=== PATIENT | female | born 1960 | race Caucasian/White ===

== ENCOUNTER 2017-04-25 16:46 | Observation (INO) | payer MEDICAID ==
[2017-04-25 16:50] VITALS: BP 170/125; PULSE 82; RESP 20; TEMP 99.6; O2SAT 100
[2017-04-25] MEDS ORDERED: SODIUM CHLORIDE 0.9% FLUSH 5 ML FLUSH IV FLUSH PRN (17:00)
--- NOTE | 2017-04-25 17:05 | PD ---
HPI Chief Complaint: Altered Mental Status Time Seen by Provider: 16:55 Travel History International Travel<30 days: No Contact w/Intl Traveler<30days: No Traveled to known affect area: No History of Present Illness HPI This patient presents with altered mental status. She presents very confused and has limited ability to provide history or review of systems. She is brought in by her friend. This patient lives alone and the friend called her and she sounded confused so she came to visit her and then brought her in. The patient has no head injury or headache. She was seen here last year and diagnosed with short term memory loss. She never goes to a physician and takes no medications. She denies diagnosed medical history. The friend says that the way she presents today is much worse than her usual. Symptoms of moderate severe in terms of confusion. No alleviating factors. Duration is one day in terms of the acute worsening PFSH Past Medical History Diminished Hearing: No Deep Vein Thrombosis: Yes GERD: Yes Past Surgical History Other Surgery: Yes (LUMPECTOMY AND COLLAPSED VEIN LLE.) Social History Alcohol Use: Yes (6 PACK A DAY) Tobacco Use: Yes (1 /2 PPD) Substance Use: No Allergies-Medications (Allergen,Severity, Reaction): Coded Allergies: Amoxicillin (Verified Allergy, Severe, N/V, 04/25/17) Cipro (Verified Allergy, Severe, N/V, 04/25/17) Codeine (Verified Allergy, Mild, 04/25/17) Erythromycins (Verified Allergy, Mild, 04/25/17) Morphine (Verified Allergy, Mild, 04/25/17) Penicillin (Verified Allergy, Mild, 04/25/17) Uncoded Allergies: TYLOX (Allergy, Mild, 11/20/03) Reported Meds & Prescriptions Reported Meds & Active Scripts Active No Active Prescriptions or Reported Medications Review of Systems General / Constitutional: No: Fever Eyes: No: Visual changes HENT: No: Headaches Cardiovascular: No: Chest Pain or Discomfort Respiratory: No: Shortness of Breath Gastrointestinal: No: Abdominal Pain Genitourinary: No: Dysuria Musculoskeletal: No: Pain Skin: No Rash Neurologic: Positive: Change in Mentation, No: Weakness Psychiatric: No: Depression Endocrine: No: Polydipsia Hematologic/Lymphatic: No: Easy Bruising Physical Exam Narrative GENERAL: Well-nourished, well-developed patient with confusion but no apparent distress. SKIN: Focused skin assessment reveals no rash and nodules. Skin is Warm and dry. Has very long fingernails HEAD: Atraumatic. Normocephalic. EYES: Pupils equal and round. No scleral icterus. No injection or drainage. ENT: No nasal bleeding or discharge. Mucous membranes pink and moist. Throat clear NECK: Trachea midline. No JVD. No meningeal signs CARDIOVASCULAR: Regular rate and rhythm. No murmur appreciated. RESPIRATORY: No accessory muscle use. Clear to auscultation. Breath sounds equal bilaterally. GASTROINTESTINAL: Abdomen soft, non-tender, nondistended. Hepatic and splenic margins not palpable. MUSCULOSKELETAL: No obvious deformities. No clubbing. No cyanosis. No edema. NEUROLOGICAL: Awake but confused. No obvious cranial nerve deficits. Motor grossly within normal limits. Normal speech. PSYCHIATRIC: Appropriate mood and affect; insight and judgment very poor . Data Data Last Documented VS Vital Signs Date Time Temp Pulse Resp B/P Pulse Ox O2 Delivery O2 Flow Rate FiO2 04/25/17 17:51 66 18 134/104 98 04/25/17 16:50 99.6 Orders Ammonia (04/25/17 16:56) Complete Blood Count With Diff (04/25/17 16:56) Comprehensive Metabolic Panel (04/25/17 16:56) Thyroid Stimulating Hormone (04/25/17 16:56) Urinalysis - C+S If Indicated (04/25/17 16:56) Ct Brain W/O Iv Contrast(Rout) (04/25/17 16:56) Blood Glucose (04/25/17 16:56) Ecg Monitoring (04/25/17 16:56) Iv Access Insert/Monitor (04/25/17 16:56) Oximetry (04/25/17 16:56) Sodium Chloride 0.9% Flush (Ns Flush) (04/25/17 17:00) Drug Screen, Random Urine (04/25/17 16:56) Alcohol (Ethanol) (04/25/17 16:56) Cath For Specimen (04/25/17 17:07) Urine Culture (04/25/17 16:15) Admit Order (Ed Use Only) (04/25/17 18:07) Admit Order (Ed Use Only) (04/25/17 18:10) Labs Laboratory Tests Test 04/25/17 16:15 White Blood Count 6.4 TH/MM3 Red Blood Count 3.96 MIL/MM3 Hemoglobin 12.4 GM/DL Hematocrit 36.0 % Mean Corpuscular Volume 91.0 FL Mean Corpuscular Hemoglobin 31.2 PG Mean Corpuscular Hemoglobin 34.3 % Concent Red Cell Distribution Width 12.7 % Platelet Count 276 TH/MM3 Mean Platelet Volume 6.2 FL Neutrophils (%) (Auto) 56.4 % Lymphocytes (%) (Auto) 34.1 % Monocytes (%) (Auto) 8.0 % Eosinophils (%) (Auto) 1.1 % Basophils (%) (Auto) 0.4 % Neutrophils # (Auto) 3.6 TH/MM3 Lymphocytes # (Auto) 2.2 TH/MM3 Monocytes # (Auto) 0.5 TH/MM3 Eosinophils # (Auto) 0.1 TH/MM3 Basophils # (Auto) 0.0 TH/MM3 CBC Comment DIFF FINAL Differential Comment Urine Collection Type CATH Urine Color STRAW Urine Turbidity CLEAR Urine pH 6.5 Urine Specific [place] 1.004 Urine Protein NEG mg/dL Urine Glucose (UA) NEG mg/dL Urine Ketones NEG mg/dL Urine Occult Blood MOD Urine Nitrite NEG Urine Bilirubin NEG Urine Leukocyte Esterase NEG Urine RBC 4-9 /hpf Urine Squamous Epithelial 0-5 /hpf Cells Urine Transitional Epithelial 0-5 /hpf Cells Urine Amorphous Sediment FEW Urine Bacteria MOD /hpf Microscopic Urinalysis Comment CATH-CULTURE IND Urine Collection Time 1615 Sodium Level 136 MEQ/L Potassium Level 4.0 MEQ/L Chloride Level 102 MEQ/L Carbon Dioxide Level 27.4 MEQ/L Anion Gap 7 MEQ/L Blood Urea Nitrogen 13 MG/DL Creatinine 0.68 MG/DL Estimat Glomerular Filtration 89 ML/MIN Rate Random Glucose 93 MG/DL Calcium Level 8.4 MG/DL Total Bilirubin 0.2 MG/DL Aspartate Amino Transf 18 U/L (AST/SGOT) Alanine Aminotransferase 22 U/L (ALT/SGPT) Alkaline Phosphatase 64 U/L Ammonia 16 MCMOL/L Total Protein 7.2 GM/DL Albumin 3.5 GM/DL Thyroid Stimulating Hormone 1.590 uIU/ML 3rd Gen Urine Opiates Screen NEG Urine Barbiturates Screen NEG Urine Amphetamines Screen NEG Urine Benzodiazepines Screen NEG Urine Cocaine Screen NEG Urine Cannabinoids Screen NEG Ethyl Alcohol Level LESS THAN 3 MG/DL MDM Medical Decision Making Medical Screen Exam Complete: Yes Emergency Medical Condition: Yes Medical Record Reviewed: Yes Differential Diagnosis Substance abuse, electrolyte abnormality, UTI, withdrawal, intracranial lesion Narrative Course I have reviewed the patient's electronic medical record. Reviewed her extensive workup from last year which essentially was negative IV placed CBC is normal Metabolic profile is normal LFTs are normal Ammonia is 16 Alcohol is negative Urinalysis is clean Tox screen is negative Brain CT is normal Extensive workup is negative yet this patient is very confused. She can't certainly be left alone. We placed a sitter request because she is so confused. She is trying to get out of the bed and only knows her name. She does not know where she is what month or year it is. She has history of alcohol abuse but none recent She may have hepatic encephalopathy to some degree although this is not reflected in her ammonia. I don't think calling her dementia at age 56 is proper at this point I placed a call to hospitalist for observation 23 hours for altered mental status However this patient is likely to need placement as her daughter lives in [place] Diagnosis Primary Impression: Altered mental status Qualified Code: R41.82 - Altered mental status, unspecified altered mental status type Admitting Information Admitting Physician Requests: Observation Scripts No Active Prescriptions or Reported Mendozas Carlos Cadena MD Apr 25, 2017 17:05
[2017-04-25 17:17] VITALS: O2SAT 95
[2017-04-25 17:33] LABS: AUTOMATED NEUTROPHIL # 3.6 TH/MM3 (1.8-7.7); BASOPHIL % 0.4 % (0.0-2.0); EOSINOPHIL # 0.1 TH/MM3 (0-0.4); EOSINOPHIL % 1.1 % (0.0-4.0); HEMO FLAGS DIFF FINAL; LYMPH % 34.1 % (9.0-44.0); LYMPHOCYTE # 2.2 TH/MM3 (1.0-4.8); MEAN CORPUSCULAR HEMOGLOBIN 31.2 PG (27.0-34.0); MEAN CORPUSCULAR HGB CONC 34.3 % (32.0-36.0); NEUT % 56.4 % (16.0-70.0); PLATELET COUNT 276 TH/MM3 (150-450); RED BLOOD COUNT 3.96 MIL/MM3 (4.00-5.30); RED CELL DISTRIBUTION WIDTH 12.7 % (11.6-17.2); WHITE BLOOD COUNT 6.4 TH/MM3 (4.0-11.0)
[2017-04-25 17:38] LABS: GLUCOSE,URINE NEG (NEG); KETONE, URINE NEG (NEG); NITRITE,URINE NEG (NEG); PH, URINE 6.5 (5.0-8.5)
[2017-04-25 17:39] LABS: BLOOD, URINE MOD (NEG); METHOD OF COLLECTION CATH; URINE COLOR STRAW (YELLW/STRAW)
[2017-04-25 17:41] LABS: CHLORIDE 102 MEQ/L (98-107); SODIUM (NA) 136 MEQ/L (136-145)
[2017-04-25 17:45] LABS: ANION GAP 7 MEQ/L (5-15); BICARBONATE 27.4 MEQ/L (21.0-32.0); BLOOD UREA NITROGEN 13 MG/DL (7-18)
--- NOTE | 2017-04-25 17:45 | RADRPT ---
EXAM DATE/TIME: 04/25/2017 17:24 [facility] COMPARISON: CT BRAIN W/O CONTRAST, January 11, 2016, 15:25. INDICATIONS : Altered mental status. RADIATION DOSE: 56.88 CTDIvol (mGy) ; Patient motion MEDICAL HISTORY : Deep venous thrombosis. Gastroesophageal reflux disease. SURGICAL HISTORY : None. ENCOUNTER: Initial ACUITY: 1 day PAIN SCALE: 0/10 LOCATION: cranial TECHNIQUE: Multiple contiguous axial images were obtained of the head. Using automated exposure control and adj ustment of the mA and/or kV according to patient size, radiation dose was kept as low as reasonably a chievable to obtain optimal diagnostic quality images. DICOM format image data is available electro nically for review and comparison. FINDINGS: CEREBRUM: CSF spaces are prominent but stable. No evidence of midline shift, mass lesion, hemorrhage or acute i nfarction. No extra-axial fluid collections are seen. POSTERIOR FOSSA: The cerebellum and brainstem are intact. The 4th ventricle is midline. The cerebellopontine angle i s unremarkable. EXTRACRANIAL: The visualized portion of the orbits is intact. SKULL: The calvaria is intact. No evidence of skull fracture. CONCLUSION: No acute disease. No significant change has occurred. Mild atrophy advanced for age. Maurice Robledo MD on April 25, 2017 at 17:32 Board Certified Radiologist. This report was verified electronically.
[2017-04-25 17:46] LABS: BACTERIA, URINE MOD /hpf; COMMENT (UR) CATH-CULTURE IND; CULTURE IF INDICATED CATH CULTURE IND; SQUAMOUS EPITHELIAL CELL URINE 0-5 /hpf (0-5); TRANSITIONAL EPI CELLS, URINE 0-5 /hpf
[2017-04-25 17:48] LABS: ALT (GPT) 22 U/L (10-53); AST (GOT) 18 U/L (15-37); GLOMERULAR FILTRATION RATE 89 ML/MIN (>89)
[2017-04-25 17:50] LABS: TOTAL BILIRUBIN ADULT 0.2 MG/DL (0.2-1.0)
[2017-04-25 17:51] VITALS: BP 134/104; PULSE 66; RESP 18; O2SAT 98
[2017-04-25 17:51] LABS: ALKALINE PHOSPHATASE 64 U/L (45-117)
[2017-04-25 17:54] LABS: ALCOHOL LESS THAN 3 MG/DL (0-5)
[2017-04-25] MEDS ORDERED: SODIUM CHLORIDE 0.9% FLUSH 10 ML FLUSH IV FLUSH PRN (19:00)
[2017-04-25 19:06] VITALS: BP 163/81; PULSE 81; RESP 17; TEMP 98.4; O2SAT 98
[2017-04-25] MEDS ORDERED: amLODIPine BESYLATE 5 MG TAB PO ONE (19:15)
[2017-04-25] MEDS: SODIUM CHLOR 0.9% 1000 ML INJ 1,000 ML IV SCH (19:46)
[2017-04-25 20:10] VITALS: BP 133/95; TEMP 98.4
[2017-04-25] MEDS: SODIUM CHLORIDE 0.9% FLUSH 10 ML FLUSH IV FLUSH SCH (21:06)
[2017-04-25 21:15] VITALS: BP 140/92; PULSE 79; RESP 20; TEMP 98.6; O2SAT 98
[2017-04-25] MEDS ORDERED: FLUMAZENIL 0.5 MG/5 ML VIAL IV PUSH PRN (23:45)
[2017-04-25] MEDS ORDERED: LORazepam 1 MG TAB PO PRN (23:45)
[2017-04-25] MEDS ORDERED: cloNIDine HCL 0.1 MG TAB PO PRN (23:45)
[2017-04-25] MEDS ORDERED: LORazepam 2 MG/ML VIAL IV PUSH PRN ×4 (23:45)
[2017-04-25] MEDS ORDERED: HALOPERIDOL LACTATE 5 MG/ML AMP IM PRN (23:45)
[2017-04-25] MEDS ORDERED: LORazepam 2 MG TAB PO PRN (23:45)
[2017-04-26 00:53] VITALS: BP 133/78; PULSE 73; RESP 18; TEMP 98; O2SAT 95
[2017-04-26] MEDS: SODIUM CHLOR 0.9% 1000 ML INJ 1,000 ML IV SCH ×2 (04:55→14:26)
[2017-04-26 08:00] VITALS: BP 147/85; PULSE 75; RESP 18; TEMP 98.4; O2SAT 99
[2017-04-26] MEDS: SODIUM CHLORIDE 0.9% FLUSH 10 ML FLUSH IV FLUSH SCH ×2 (08:31→20:58)
[2017-04-26] MEDS: amLODIPine BESYLATE 5 MG TAB PO SCH (08:31)
--- NOTE | 2017-04-26 11:24 | HHI.HP ---
[facility] Service [facility] Primary Care Physician No Primary Care Physician Admission Diagnosis AMS Diagnoses: Chief Complaint: Confusion Travel History International Travel<30 Days: No Contact w/Intl Traveler <30 Da: No Traveled to Known Affected Are: No History of Present Illness 56-year-old female brought into the emergency room by her friend for altered mental status. The patient's friend reported she was more confused than usual which prompted the emergency room visit. The patient herself is very confused. She can only tell me me her name. I called the patient's daughter to obtain the history. Apparently over the past when a half years, she has been having memory issues. She was put on disability for possible dementia that was reportedly diagnosed by a psychologist. The patient was seen in the emergency room here over a year ago and was diagnosed with short term memory loss at the time. She was referred to neurology but could not be seen due to lack of insurance. The patient's daughter report she has been living at home. She gets her meals from [employer]. Only use the microwave for food. Her daughter lives in [facility] but is driving up here today. The patient herself denies any pain. No headache or lightheadedness. She can respond yes or no to some questions. At times tried to sit up to get out of bed. She currently has a sitter at bedside for redirection. She does have a history of drinking alcohol. However her daughter really could not tell me how much she drank. She believes she was drinking every other day, a few beers at a time. Review of Systems ROS Limitations: Altered Mental Status Unable to obtain accurate ROS given the patient's current neurological status. Past Family Social History Past Medical History History of problem with her leg. ? Blood clot ?Dementia Past Surgical History None Reported Medications Reported Meds & Active Scripts Active No Active Prescriptions or Reported Medications Allergies: Coded Allergies: Amoxicillin (Verified Allergy, Severe, N/V, 04/25/17) Cipro (Verified Allergy, Severe, N/V, 04/25/17) Codeine (Verified Allergy, Mild, 04/25/17) Erythromycins (Verified Allergy, Mild, 04/25/17) Morphine (Verified Allergy, Mild, 04/25/17) Penicillin (Verified Allergy, Mild, 04/25/17) Uncoded Allergies: TYLOX (Allergy, Mild, 11/20/03) Family History Patient's father had dementia in his 80's Mother with unknown type of cancer Social History Patient used to smoke half to a pack per day. Lately has not been able to remember to smoke per daughter. She used to drink alcohol in the past per her daughter. It is unclear how much. She states every other day, she will drink a few beers No history of illicit drug use. Physical Exam Vital Signs Vital Signs Date Time Temp Pulse Resp B/P Pulse Ox O2 Delivery O2 Flow Rate FiO2 04/26/17 08:00 98.4 75 18 147/85 99 04/26/17 05:07 04/26/17 00:53 98.0 73 18 133/78 95 04/25/17 21:15 98.6 79 20 140/92 98 04/25/17 20:10 98.4 72 18 133/95 97 04/25/17 19:06 98.4 81 17 163/81 98 Room Air 04/25/17 17:51 66 18 134/104 98 04/25/17 17:17 95 04/25/17 16:50 99.6 82 20 170/125 100 Physical Exam GENERAL: Pleasantly confused, in no apparent distress. SKIN: No rashes, ecchymoses or lesions. Cool and dry. HEAD: Atraumatic. Normocephalic. No temporal or scalp tenderness. EYES: Pupils equal round and reactive. ENT: Nose without drainage. Throat without erythema, tonsillar hypertrophy or exudate. Uvula midline. Airway patent. NECK: Trachea midline. No JVD or lymphadenopathy. Supple, nontender, no meningeal signs. CARDIOVASCULAR: Regular rate and rhythm without murmurs, gallops, or rubs. RESPIRATORY: Clear to auscultation. Breath sounds equal bilaterally. No wheezes , rales, or rhonchi. GASTROINTESTINAL: Abdomen soft, non-tender, nondistended. No hepato-splenomegaly , or palpable masses. No guarding. MUSCULOSKELETAL: Extremities without clubbing, cyanosis, or edema. No joint tenderness, effusion, or edema noted. No calf tenderness. Negative Homans sign bilaterally. NEUROLOGICAL: Awake. Oriented to self only. Can only tell me her name. Does not know her , year, time, or situation. Can move all extremities spontaneously. Laboratory Laboratory Tests Test 04/25/17 16:15 White Blood Count 6.4 Red Blood Count 3.96 Hemoglobin 12.4 Hematocrit 36.0 Mean Corpuscular Volume 91.0 Mean Corpuscular Hemoglobin 31.2 Mean Corpuscular Hemoglobin 34.3 Concent Red Cell Distribution Width 12.7 Platelet Count 276 Mean Platelet Volume 6.2 Neutrophils (%) (Auto) 56.4 Lymphocytes (%) (Auto) 34.1 Monocytes (%) (Auto) 8.0 Eosinophils (%) (Auto) 1.1 Basophils (%) (Auto) 0.4 Neutrophils # (Auto) 3.6 Lymphocytes # (Auto) 2.2 Monocytes # (Auto) 0.5 Eosinophils # (Auto) 0.1 Basophils # (Auto) 0.0 CBC Comment DIFF FINAL Differential Comment Urine Collection Type CATH Urine Color STRAW Urine Turbidity CLEAR Urine pH 6.5 Urine Specific [place] 1.004 Urine Protein NEG Urine Glucose (UA) NEG Urine Ketones NEG Urine Occult Blood MOD Urine Nitrite NEG Urine Bilirubin NEG Urine Leukocyte Esterase NEG Urine RBC 4-9 Urine Squamous Epithelial 0-5 Cells Urine Transitional Epithelial 0-5 Cells Urine Amorphous Sediment FEW Urine Bacteria MOD Microscopic Urinalysis Comment CATH-CULTURE IND Urine Collection Time 1615 Sodium Level 136 Potassium Level 4.0 Chloride Level 102 Carbon Dioxide Level 27.4 Anion Gap 7 Blood Urea Nitrogen 13 Creatinine 0.68 Estimat Glomerular Filtration 89 Rate Random Glucose 93 Calcium Level 8.4 Total Bilirubin 0.2 Aspartate Amino Transf 18 (AST/SGOT) Alanine Aminotransferase 22 (ALT/SGPT) Alkaline Phosphatase 64 Ammonia 16 Total Protein 7.2 Albumin 3.5 Thyroid Stimulating Hormone 1.590 3rd Gen Urine Opiates Screen NEG Urine Barbiturates Screen NEG Urine Amphetamines Screen NEG Urine Benzodiazepines Screen NEG Urine Cocaine Screen NEG Urine Cannabinoids Screen NEG Ethyl Alcohol Level LESS THAN 3 Date/Time Procedure Status Source Growth 04/25/17 16:15 Urine Culture Received Urine Catheterized Urine Pending Result Diagram: 04/25/17 1615 04/25/17 1615 Imaging Last Impressions Head CT 04/25/17 1656 Signed Impressions: Service Date/Time: Tuesday, April 25, 2017 17:24 - CONCLUSION: No acute disease. No significant change has occurred. Mild atrophy advanced for age. Maurice Robledo MD Assessment and Plan Problem List: (1) Encephalopathy ICD Code: G93.40 Status: Acute (2) Altered mental status ICD Code: R41.82 Status: Acute (3) Memory deficits ICD Code: R41.3 Status: Acute Assessment and Plan 56 Y/O female with a declining neurological course over the past couple of years per family. She is fairly young for Dementia. However she does appear to have Dementia given the reported history. 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 I have reviewed all available records. The patient was year in 2013 for leg pain at which point there were no mention of memory issues. She came back here last year in the ED and was diagnosed with short-term memory loss, advised to follow up outpatient with neurology but that was not done due to lack of insurance.. We will obtain MRI and EEG. Consult neurology to help establish diagnosis - Continue sitter at bedside for redirection - This patient cannot live independently. Daughter is looking into getting help Discussed Condition With Dr. Cadena and the patient's daughter Mona ([phone]) extensively. Problem Qualifiers (1) Altered mental status: Qualified Code: R41.82 - Altered mental status, unspecified altered mental status type Blanco Rodriguez MD Apr 26, 2017 11:24
[2017-04-26 12:00] VITALS: BP 147/83; PULSE 75; RESP 18; TEMP 98; O2SAT 97
[2017-04-26] MEDS ORDERED: GADODIAMIDE PF 287 MG/ML 5 ML VIAL (for RAD MRI) IV ONE (13:36)
--- NOTE | 2017-04-26 14:44 | RADRPT ---
EXAM DATE/TIME: 04/26/2017 13:26 [facility] COMPARISON: No previous studies available for comparison. INDICATIONS : Encephalitis. CONTRAST: 14 cc Omniscan (gadodiamide) IV MEDICAL HISTORY : Deep venous thrombosis. Reflex. SURGICAL HISTORY : Lupectomy ENCOUNTER: Initial ACUITY: 2 day PAIN SCORE: 3/10 LOCATION: Bilateral cranial TECHNIQUE: Multiplanar, multisequence MRI of the brain was performed both prior to and following the administrat ion of paramagnetic contrast. FINDINGS: CEREBRUM: The ventricles are normal for age. No evidence of midline shift, mass lesion, hemorrhage or acute in farction. No extraaxial fluid collections are seen. The pituitary gland and suprasellar cistern are normal in configuration. WHITE MATTER: No significant signal abnormalities are seen in the white matter. POSTERIOR FOSSA: The cerebellum and brainstem are intact. The 4th ventricle is midline. The cerebellopontine angle is unremarkable. The cerebellar tonsils are normal in position. DIFFUSION IMAGING: No focal areas of restricted diffusion are seen. No evidence of acute infarction. EXTRACRANIAL: The visualized portions of the orbits and paranasal sinuses are unremarkable. POST-CONTRAST: No abnormal areas of parenchymal or dural enhancement. No evidence of blood-brain barrier breakdown. CONCLUSION: Negative MRI of the brain or acute inflammatory process. Correlation with CSF studie s may be of benefit. Jose Zhang MD FACR on April 26, 2017 at 14:40 Board Certified Radiologist. This report was verified electronically.
[2017-04-26 16:00] VITALS: BP 154/84; PULSE 59; RESP 18; TEMP 98.1; O2SAT 96
[2017-04-26 20:00] VITALS: BP 155/91; PULSE 72; RESP 20; TEMP 96.8; O2SAT 96
[2017-04-27] VITALS: BP 151/93; PULSE 79; RESP 16; TEMP 98.2; O2SAT 97
[2017-04-27] MEDS: SODIUM CHLOR 0.9% 1000 ML INJ 1,000 ML IV SCH (00:32)
[2017-04-27 08:00] VITALS: BP 151/88; PULSE 60; RESP 18; TEMP 97.1; O2SAT 95
[2017-04-27] MEDS: SODIUM CHLORIDE 0.9% FLUSH 10 ML FLUSH IV FLUSH SCH ×2 (08:18→21:48)
[2017-04-27] MEDS: amLODIPine BESYLATE 5 MG TAB PO SCH (08:18)
--- NOTE | 2017-04-27 09:23 | MB ---
cc: ELIAZAR DOTY MD DATE OF CONSULTATION 04/26/2017 REASON FOR CONSULTATION "Neurological/memory decline over the past two years per family, questionable dementia. The patient is [id number], please assess to establish a diagnosis. HISTORY OF PRESENT ILLNESS Ms. Blount is a 56-year-old female accompanied by her daughter who is at the bedside and a sitter. The daughter states that she has noticed that her mother has been having a decline in her cognitive function over the last 1-1/2 years, but over the last six months, she has noticed more rapid decline. However, the patient lives by herself and a friend who has not seen her for a long time stopped by to see her and she thought she had a stroke given the change in the personality so she was brought into the [facility] emergency room. She was diagnosed with possible dementia by psychologist. Last year, she was in the emergency room diagnosed with short-term memory loss per neurologic, but could not see her due to lack of insurance. The patient gets her meals through [employer]. She does not use the stove and uses a microwave. During the encounter, the patient is pleasant, minimally engaged in the conversation. The daughter states that there is no family history of Alzheimer's disease, Parkinson's disease and no history of stroke or trauma. There was a history of alcohol use and as per daughter every other day, but not certain about the amount, but there was some excess consumption of alcohol until recently. No drug abuse. The patient denies headache, blurred vision, double vision, speech difficulty, weakness of an extremity or seizures. REVIEW OF SYSTEMS A 12-point review of system is negative except for what is stated in the HPI. PAST MEDICAL HISTORY Dementia and DVT. PAST SURGICAL HISTORY Noncontributory MEDICATIONS No active medications. ALLERGIES AMOXICILLIN, CIPRO, CODEINE, ERYTHROMYCIN, MORPHINE AND PENICILLIN. FAMILY HISTORY The patient's father has dementia in his 80s. Mother, cancer. SOCIAL HISTORY Ex-smoker. She has told the daughter, she was not able to remember to smoke. Used to drink alcohol until recently, not clear how much. No history of drug abuse. PHYSICAL EXAMINATION GENERAL: Calm, quiet in bed not in acute distress, looks pale. HEENT: Atraumatic, normocephalic. Trachea in the midline. NECK: Supple. No signs of meningeal irritation. CARDIOVASCULAR: Regular rate and rhythm. RESPIRATORY: Clear to auscultation. No wheezes. GASTROINTESTINAL: Soft abdomen. MUSCULOSKELETAL: No clubbing, no cyanosis, no edema. NEUROLOGIC: Awake, oriented to self, not to time or place. Intact naming. Intact repetition. Intact reading, however she was hesitant in naming objects like a pen, watch and tie or a pen and watch, however, she named my tie and described it, named the colors of the tie. No dysarthria. Flat mood and affect. No grasp reflex, positive blink reflex. Cranial nerves grossly intact upper and lower extremity 5/5 bilateral symmetrical. No rigidity. Normal reflexes. Plantars are downgoing. Normal cerebellar functions. Intact sensory functions. Normal reflexes. Reflexes 2+ bilateral symmetrical upper extremities, 1+ patellar, absent ankle reflexes. Stance normal. Ataxia. Romberg is positive. Plantars bilaterally mute. PSYCHOLOGICAL: Flat affect, mask-like face and the muscle raise mask-like face, occasionally engages a couple of words with the daughter. LABORATORY DATA WBC 6.4, hemoglobin 12.4, platelet 276. Sodium 138, potassium 4, chloride 102, amnion gap 7, BUN 13, creatinine 0.68. LFT normal, ammonia 16, normal thyroid function tests, UDS is negative. DIAGNOSTICS IMAGING STUDIES - Head CT scan without contrast revealed mild atrophy advanced for age. - MRI of the brain with and without contrast was reported as negative for an acute inflammatory process. I reviewed the MRI and that I think reveals cortical atrophy frontal and bitemporal with dilated ventricles with mild ischemic white matter changes. DIAGNOSTIC IMPRESSION - Cognitive decline/dementia. Possibly subcortical dementia rather than cortical dementia. - Slow cognitive decline in memory and mild behavioral changes. The patient lives by herself. PLAN 1. Neuro checks q. four hourly. The patient needs formal neuro-cognitive assessment as an outpatient. 2. May consider CSF studies for VDRL, HIV inflammatory markers. 3. B12, RPR, B1 levels 4. EEG 5. Serology, rule out DIESEL LUBE TECH vasculitis. 6. Consult a older adult social work specialist. 7. The patient lives by herself. She needs placement. 8. Follow-up outpatient for neuro cognitive assessment and further testing. Thank you for the opportunity to participate in the care of your patient. Raid G. Ossi, MD RGO/DJL /9:04 PM /8:57 AM MTDMaddy
[2017-04-27 09:30] LABS: TOTAL PROTEIN SPE 6.1 GM/DL (6.0-7.6)
--- NOTE | 2017-04-27 09:55 | MG ---
cc: SAMUEL FAITH Lab No: [id number] Date: 04/27/2017 Age: 56 Sex: F Race: __ INDICATIONS This is a 56-year-old. Hyperventilation not performed. CT negative. Short-term memory loss. MEDICATIONS Norvasc DESCRIPTION 9 Hz, 60 microvolt posterior rhythm is noted. Mild diffuse theta slowing is seen at times. No epileptiform or seizure activity is seen. Photic stimulation is performed without significant posterior driving. Hyperventilation not performed. Some blink artifact is noted. IMPRESSION Minimal diffuse theta slowing, otherwise an unremarkable EEG. No seizure activity is noted. No hemisphere asymmetries are seen. MD ANT Simpson/LUIS /8:32 AM /9:49 AM
--- NOTE | 2017-04-27 10:05 | HHI.PR ---
Subjective Remarks Patient remained confused. Her daughter reports she is more awake and more talkative. Patient has no complaints. Objective Vitals Vital Signs Date Time Temp Pulse Resp B/P Pulse Ox O2 Delivery O2 Flow Rate FiO2 04/27/17 08:00 97.1 60 18 151/88 95 04/27/17 00:00 98.2 79 16 151/93 97 04/26/17 20:00 96.8 72 20 155/91 96 04/26/17 16:00 98.1 59 18 154/84 96 04/26/17 12:00 98.0 75 18 147/83 97 I/O 04/26/17 04/26/17 04/26/17 04/27/17 04/27/17 04/27/17 07:00 15:00 23:00 07:00 15:00 23:00 Intake Total 800 ml 100 ml 4120 ml 1294 ml Output Total 200 ml Balance 800 ml -100 ml 4120 ml 1294 ml Intake Oral 100 ml 800 ml 480 ml IV Total 800 ml 3320 ml 814 ml Output Urine Total 200 ml # Voids 2 2 # Bowel Movements 0 0 Result Diagram: 04/25/17 1615 04/25/17 1615 Imaging Last Impressions Brain MRI 04/26/17 0000 Signed Impressions: Service Date/Time: Wednesday, April 26, 2017 13:26 - CONCLUSION: Negative MRI of the brain or acute inflammatory process. Correlation with CSF studies may be of benefit. Jose Zhang MD FACR Head CT 04/25/17 1656 Signed Impressions: Service Date/Time: Tuesday, April 25, 2017 17:24 - CONCLUSION: No acute disease. No significant change has occurred. Mild atrophy advanced for age. Maurice Robledo MD Objective Remarks GENERAL: Pleasantly confused, in no apparent distress. CARDIOVASCULAR: Regular rate and rhythm without murmurs, gallops, or rubs. RESPIRATORY: Clear to auscultation. Breath sounds equal bilaterally. No wheezes , rales, or rhonchi. GASTROINTESTINAL: Abdomen soft, non-tender, nondistended. No hepato-splenomegaly , or palpable masses. No guarding. MUSCULOSKELETAL: Extremities without clubbing, cyanosis, or edema. NEUROLOGICAL: Awake. Oriented to self only. Can only tell me her name. Does not know her , year, time, or situation. Can move all extremities spontaneously. A/P Problem List: (1) Encephalopathy ICD Code: G93.40 Status: Acute (2) Altered mental status ICD Code: R41.82 Status: Acute (3) Memory deficits ICD Code: R41.3 Status: Acute Assessment and Plan 56 Y/O female with a declining neurological course over the past couple of years per family. - Neurology following. MRI with no acute findings. No seizure activities on EEG. Per neurology, possibly subcortical dementia. Serologies per neurology pending. Patient will need formal outpatient neurocognitive testing. - Need SNF placement. Hypertension: Patient was started on Norvasc. BP better controlled. Escherichia coli UTI: Treat with Bactrim DS for 3 days. GI prophylaxis: Stool softener PRN constipation. DVT PPx: Heparin Discharge Planning Need SNF placement. Discussed with case management. Problem Qualifiers (1) Altered mental status: Qualified Code: R41.82 - Altered mental status, unspecified altered mental status type Blanco Rodriguez MD Apr 27, 2017 10:05
[2017-04-27] MEDS: SULFAMETHOXAZOLE-TRIMETHOPRIM DS 800-160 MG TAB PO SCH ×2 (10:27→21:47)
[2017-04-27] MEDS: HEPARIN SODIUM - SQ 10,000 UNITS/ML VIAL SQ SCH ×2 (11:40→21:50)
[2017-04-27 12:00] VITALS: BP 151/88; PULSE 60; RESP 18; TEMP 97.1; O2SAT 95
[2017-04-27 16:00] VITALS: BP 118/90; PULSE 64; RESP 18; TEMP 97.1; O2SAT 98
--- NOTE | 2017-04-27 17:14 | HHI.PR ---
Review/Management Diagnosis - Cognitive decline/dementia. Possibly subcortical dementia rather than cortical dementia. - Slow cognitive decline in memory and mild behavioral changes. The patient lives by herself. - Low normal vitamin B12 levels Plan - The patient will need formal neuro-cognitive assessment as an outpatient. - Add vitamin B12 supplements - group care worker is on board for placement - The patient lives by herself. She needs placement. - Pending lab results, can be discharged from hospital and follow up lab results as outpatient - Follow-up outpatient neurology for further work up - Discussed with daughter the plan of care and answered her questions - Please call for questions Diagnosis/Plan: Subjective Subjective Comments No acute events reported Daughter and friend at bed side Low normal vitamin B12 level EEG is unremarkable Active Medications Current Medications Medications (Trade) Dose Ordered Sig/Salo Route Start Time Stop Time Status Last Admin (Norvasc) 5 mg DAILY PO 04/26/17 09:00 04/27/17 08:18 (NS Flush) 2 ml UNSCH PRN IV FLUSH 04/25/17 19:00 (NS Flush) 2 ml BID IV FLUSH 04/25/17 21:00 04/27/17 08:18 (Romazicon Inj) 0.2 mg Q1M PRN IV PUSH 04/25/17 23:45 (Ativan) 1 mg Q4H PRN PO 04/25/17 23:45 (Ativan Inj) 1 mg Q4H PRN IV PUSH 04/25/17 23:45 (Ativan) 2 mg Q2H PRN PO 04/25/17 23:45 (Ativan Inj) 2 mg Q2H PRN IV PUSH 04/25/17 23:45 (Ativan Inj) 2 mg Q1H PRN IV PUSH 04/25/17 23:45 (Ativan Inj) 2 mg Q15M PRN IV PUSH 04/25/17 23:45 (Haldol Inj) 2 mg Q15M PRN IM 04/25/17 23:45 (Catapres) 0.1 mg Q6H PRN PO 04/25/17 23:45 (Bactrim Ds 800-160 Mg) 1 tab Q12HR PO 04/27/17 10:00 04/30/17 09:59 04/27/17 10:27 (Heparin Inj) 5,000 units DAILY@10,22 SQ 04/27/17 10:15 04/27/17 11:40 Allergies Allergies Coded Allergies amoxicillin (Unverified Allergy, Severe, N/V, 04/27/17) ciprofloxacin (Unverified Allergy, Severe, N/V, 04/27/17) azithromycin (Unverified Allergy, Mild, 04/27/17) codeine (Unverified Allergy, Mild, 04/27/17) erythromycin base (Unverified Allergy, Mild, 04/27/17) morphine (Unverified Allergy, Mild, 04/27/17) penicillin G (Unverified Allergy, Mild, 04/27/17) Uncoded Allergies TYLOX ( Allergy, Mild, 11/20/03) Review of Systems All other ROS: ROS reviewed as documented in chart Exam I&O / VS 04/26/17 04/26/17 04/27/17 15:00 23:00 07:00 Intake Total 100 ml 4120 ml 1294 ml Output Total 200 ml Balance -100 ml 4120 ml 1294 ml Intake Oral 100 ml 800 ml 480 ml IV Total 3320 ml 814 ml Output Urine Total 200 ml # Voids 2 2 # Bowel Movements 0 0 Vital Signs Date Time Temp Pulse Resp B/P Pulse Ox O2 Delivery O2 Flow Rate FiO2 04/27/17 16:00 97.1 64 18 118/90 98 04/27/17 12:00 97.1 60 18 151/88 95 04/27/17 08:00 97.1 60 18 151/88 95 04/27/17 00:00 98.2 79 16 151/93 97 04/26/17 20:00 96.8 72 20 155/91 96 Exam Comments GENERAL: Calm, quiet in bed not in acute distress, pale. HEENT: Atraumatic, normocephalic. Trachea in the midline. NECK: Supple. No signs of meningeal irritation. CARDIOVASCULAR: Regular rate and rhythm. RESPIRATORY: Clear to auscultation. No wheezes. GASTROINTESTINAL: Soft abdomen. MUSCULOSKELETAL: No clubbing, no cyanosis, no edema. NEUROLOGIC: Awake, oriented to self, not to time or place. Intact naming. Intact repetition. Intact reading. No dysarthria. Flat mood and affect. No grasp reflex, positive blink reflex. Cranial nerves grossly intact upper and lower extremity 5/5 bilateral symmetrical. No rigidity. Normal reflexes. Plantars are downgoing. Normal cerebellar functions. Intact sensory functions. Normal reflexes. Reflexes 2+ bilateral symmetrical upper extremities, 1+ patellar, absent ankle reflexes. Stance normal. Ataxia. Romberg is positive. Plantars bilaterally mute. PSYCHOLOGICAL: Flat affect, mask-like face and the muscle raise mask-like face, occasionally engages a couple of words with the daughter. Objective Radiology Results Last 72 hours Impressions Brain MRI 04/26/17 0000 Signed Impressions: Service Date/Time: Wednesday, April 26, 2017 13:26 - CONCLUSION: Negative MRI of the brain or acute inflammatory process. Correlation with CSF studies may be of benefit. Jose Zhang MD FACR Head CT 04/25/17 1656 Signed Impressions: Service Date/Time: Tuesday, April 25, 2017 17:24 - CONCLUSION: No acute disease. No significant change has occurred. Mild atrophy advanced for age. Maurice Robledo MD Micro and Labs Laboratory Tests Test 04/27/17 05:10 Erythrocyte Sedimentation Rate 18 Total Protein 6.1 Rapid Plasma Reagin NON-REACTIVE HIV (1&2) Antibody NEGATIVE Date/Time Procedure Status Source Growth 04/25/17 16:15 Urine Culture - Final Complete Urine Catheterized Urine Escherichia Coli Carl Villalpando MD Apr 27, 2017 17:14
[2017-04-27 20:00] VITALS: BP 134/90; PULSE 81; RESP 20; TEMP 97.3; O2SAT 97
[2017-04-28] VITALS: BP 155/93; PULSE 73; RESP 17; TEMP 96.5; O2SAT 97
[2017-04-28] MEDS: SODIUM CHLORIDE 0.9% FLUSH 10 ML FLUSH IV FLUSH SCH (08:25)
[2017-04-28] MEDS: SULFAMETHOXAZOLE-TRIMETHOPRIM DS 800-160 MG TAB PO SCH (08:25)
[2017-04-28] MEDS: amLODIPine BESYLATE 5 MG TAB PO SCH (08:25)
[2017-04-28 08:47] VITALS: BP 173/100; PULSE 65; RESP 16; TEMP 96.4; O2SAT 98
[2017-04-28] MEDS: HEPARIN SODIUM - SQ 10,000 UNITS/ML VIAL SQ SCH (10:15)
[2017-04-28] MEDS ORDERED: SULF1TAB23 PO (10:24)
[2017-04-28] MEDS ORDERED: AMLO5 PO (10:24)
--- NOTE | 2017-04-28 10:27 | HHI.PR ---
Subjective Remarks No change in neurological status. Patient very confused. Awaiting arrangement for DC to SNF. Objective Vitals Vital Signs Date Time Temp Pulse Resp B/P Pulse Ox O2 Delivery O2 Flow Rate FiO2 04/28/17 08:47 96.4 65 16 173/100 98 04/28/17 00:00 96.5 73 17 155/93 97 04/27/17 20:00 97.3 81 20 134/90 97 04/27/17 16:00 97.1 64 18 118/90 98 04/27/17 12:00 97.1 60 18 151/88 95 I/O 04/27/17 04/27/17 04/27/17 04/28/17 04/28/17 04/28/17 06:59 14:59 22:59 06:59 14:59 22:59 Intake Total 1294 ml 240 ml 480 ml Balance 1294 ml 240 ml 480 ml Intake Oral 480 ml 240 ml 480 ml IV Total 814 ml # Voids 2 9 5 # Bowel Movements 0 2 2 Result Diagram: 04/25/17 1615 04/25/17 1615 Objective Remarks GENERAL: Pleasantly confused, in no apparent distress. CARDIOVASCULAR: Regular rate and rhythm without murmurs, gallops, or rubs. RESPIRATORY: Clear to auscultation. Breath sounds equal bilaterally. No wheezes , rales, or rhonchi. GASTROINTESTINAL: Abdomen soft, non-tender, nondistended. No hepato-splenomegaly , or palpable masses. No guarding. MUSCULOSKELETAL: Extremities without clubbing, cyanosis, or edema. NEUROLOGICAL: Awake. Oriented to self only. Can only tell me her name. Does not know her , year, time, or situation. Can move all extremities spontaneously. A/P Problem List: (1) Encephalopathy ICD Code: G93.40 Status: Acute (2) Altered mental status ICD Code: R41.82 Status: Acute (3) Memory deficits ICD Code: R41.3 Status: Acute Assessment and Plan 56 Y/O female with a declining neurological course over the past couple of years per family. - Neurology following. MRI with no acute findings. No seizure activities on EEG. Per neurology, possibly subcortical dementia. Serologies per neurology pending. Patient will need formal outpatient neurocognitive testing. - Need SNF placement. Family planning to take patient to SNF in [facility]. Case management assisting. OK by me for her daughter to drive her there. She does need 24/7 supervision. Hypertension: Patient was started on Norvasc. BP better controlled. Escherichia coli UTI: Treat with Bactrim DS for 3 days. GI prophylaxis: Stool softener PRN constipation. DVT PPx: Heparin Discharge Planning Need SNF placement. Case management assisting.. Problem Qualifiers (1) Altered mental status: Qualified Code: R41.82 - Altered mental status, unspecified altered mental status type Blanco Rodriguez MD Apr 28, 2017 10:27
--- NOTE | 2017-04-28 10:40 | HHI.DS ---
Discharge Summary Admission Date Apr 25, 2017 at 18:10 Discharge Date: Apr 28, 2017 Admitting Diagnosis AMS (1) Encephalopathy ICD Code: G93.40 (2) Altered mental status ICD Code: R41.82 (3) Memory deficits ICD Code: R41.3 Procedures None Brief History - From Admission 56-year-old female brought into the emergency room by her friend for altered mental status. The patient's friend reported she was more confused than usual which prompted the emergency room visit. The patient herself is very confused. She can only tell me me her name. I called the patient's daughter to obtain the history. Apparently over the past when a half years, she has been having memory issues. She was put on disability for possible dementia that was reportedly diagnosed by a psychologist. The patient was seen in the emergency room here over a year ago and was diagnosed with short term memory loss at the time. She was referred to neurology but could not be seen due to lack of insurance. The patient's daughter report she has been living at home. She gets her meals from [employer]. Only use the microwave for food. Her daughter lives in [facility] but is driving up here today. The patient herself denies any pain. No headache or lightheadedness. She can respond yes or no to some questions. At times tried to sit up to get out of bed. She currently has a sitter at bedside for redirection. She does have a history of drinking alcohol. However her daughter really could not tell me how much she drank. She believes she was drinking every other day, a few beers at a time. CBC/BMP: 04/25/17 1615 04/25/17 1615 Significant Findings Laboratory Tests Test 04/25/17 04/26/17 16:15 12:55 Calcium Level 8.4 MG/DL (8.5-10.1) Red Blood Count 3.96 MIL/MM3 (4.00-5.30) Mean Platelet Volume 6.2 FL (7.0-11.0) Urine Occult Blood MOD (NEG) Urine RBC 4-9 /hpf (0-3) Urine Bacteria MOD /hpf (NONE) Folate 18.4 NG/ML (3.1-17.5) Imaging Last Impressions Brain MRI 04/26/17 0000 Signed Impressions: Service Date/Time: Wednesday, April 26, 2017 13:26 - CONCLUSION: Negative MRI of the brain or acute inflammatory process. Correlation with CSF studies may be of benefit. Jose Zhang MD FACR Head CT 04/25/17 1656 Signed Impressions: Service Date/Time: Tuesday, April 25, 2017 17:24 - CONCLUSION: No acute disease. No significant change has occurred. Mild atrophy advanced for age. Maurice Robledo MD PE at Discharge GENERAL: Pleasantly confused, in no apparent distress. CARDIOVASCULAR: Regular rate and rhythm without murmurs, gallops, or rubs. RESPIRATORY: Clear to auscultation. Breath sounds equal bilaterally. No wheezes , rales, or rhonchi. GASTROINTESTINAL: Abdomen soft, non-tender, nondistended. No hepato-splenomegaly , or palpable masses. No guarding. MUSCULOSKELETAL: Extremities without clubbing, cyanosis, or edema. NEUROLOGICAL: Awake. Oriented to self only. Can only tell me her name. Does not know her , year, time, or situation. Can move all extremities spontaneously. Pt update on day of discharge No change in neurological status. Patient very confused. Hospital Course 56 Y/O female with a declining neurological course over the past couple of years per family. Patient was followed by Neurology. MRI with no acute findings. No seizure activities on EEG. Per neurology, possibly subcortical dementia. Serologies per neurology pending. Patient will need formal outpatient neurocognitive testing. Family planning to take patient to SNF in [facility]. Case management assisting. OK by me for her daughter to drive her there. She does need supervision. Hypertension: Patient was started on Norvasc. BP better controlled. Escherichia coli UTI: Treat with Bactrim DS for 3 days. Pt Condition on Discharge: Stable Discharge Disposition: Discharge to SNF Discharge Time: > 30 minutes Discharge Instructions DIET: Follow Instructions for: As Tolerated, No Restrictions Activities you can perform: Regular-No Restrictions Follow up Referrals: Neurology New Medications: Amlodipine (Norvasc) 5 Mg Tab 5 MG PO DAILY #30 TAB Sulfamethoxazole-Trimethoprim (Sulfamethoxazole-Trimethoprim) 800-160 Mg Tab 1 TAB PO Q12HR #4 TAB Blanco Rodriguez MD Apr 28, 2017 10:40
[2017-04-28 14:12] VITALS: BP 120/68; PULSE 78; RESP 18; TEMP 98; O2SAT 94
--- NOTE | 2017-04-28 15:25 | HHI.PR ---
Addendum to Inpatient Note Addendum Reason: Additional Documentation Additional Information Notified by RN that the insurance denied SNF placement. Discharge canceled. The patient's family will have to figure out another arrangement. Case management assisting. Blanco Rodriguez MD Apr 28, 2017 15:25
[2017-04-28 17:00] LABS: ANA SCREEN NEG (NEG)
[2017-04-28 17:20] VITALS: BP 127/87; PULSE 73; RESP 15; TEMP 98; O2SAT 100
[2017-04-28 22:31] LABS: ALBUMIN SPE 3.65 GM/DL (3.50-5.00); ALPHA 1 GLOBULIN 0.2 GM/DL (0.11-0.29); ALPHA 2 GLOBULIN 0.87 GM/DL (0.22-1.00); BETA GLOBULINS (SPE) 0.7 GM/DL (0.53-1.03)
[2017-04-30 03:49] LABS: MYELOPEROXIDASE LESS THAN 1.0 AI (<1.0); PROTEINASE-3 LESS THAN 1.0 AI (<1.0)
[2017-04-30 09:52] LABS: THROMBIN TIME FOR LA ND sec (13-19)
== END 2017-04-28 17:56 | disposition home or self-care (01) ==
LOC: PHED 16:46 → PHEDA 18:10 → PH3A 20:22
PROVIDERS: ADMIT Family Medicine; ATTEND Family Medicine
DX: G93.40 Encephalopathy, unspecified (principal); R41.82 Altered mental status, unspecified; R41.3 Other amnesia; I10 Essential (primary) hypertension; N39.0 Urinary tract infection, site not specified; B96.20 Unspecified Escherichia coli [E. coli] as the cause of diseases classified elsewhere; K21.9 Gastro-esophageal reflux disease without esophagitis; Z72.0 Tobacco use
CPT/HCPCS: 70450; 70553; 80053; 80307; 81001; 82140; 82607; 82746; 83921; 84165; 84425; 84443; 85025; 85613; 85652; 85730; 86021; 86038; 86592; 86703; 87077; 87086; 87186; 95819; 96361; 96372; 96374; 97162; 99285; A9579; G0378; G8987; G8988; J1644; J2060; J7030; P9612